=== PATIENT | male | born 1985 | race Caucasian/White ===

== ENCOUNTER 2021-03-05 05:08 | Emergency (ER) | payer OTHER ==
[~2021-03-05] VITALS: Ht 170.2 cm; Wt 81.6 kg
--- NOTE | 2021-03-05 05:30 | NUR ---
Dr. Garrett at bedside for MSE.
[2021-03-05] MEDS ORDERED: PANTOPRAZOLE SODIUM 40 MG VIAL IV ONE (05:45)
[2021-03-05] MEDS ORDERED: GLUCAGON,HUMAN RECOMBINANT 1 MG VIAL IVP ONE ×2 (05:45→06:45)
[2021-03-05] MEDS ORDERED: METOCLOPRAMIDE HCL 10 MG/2 ML VIAL IV ONE (05:45)
[2021-03-05] MEDS ORDERED: PANTOPRAZOLE SODIUM 40 MG VIAL ONE (05:53)
[2021-03-05] MEDS ORDERED: METOCLOPRAMIDE HCL 10 MG/2 ML VIAL ONE (05:53)
--- NOTE | 2021-03-05 05:53 | NUR ---
Xray at bedside.
[2021-03-05] MEDS ORDERED: GLUCAGON,HUMAN RECOMBINANT 1 MG VIAL ONE ×2 (05:54→07:01)
[2021-03-05] MEDS ORDERED: MORPHINE SULFATE 4 MG/1 ML DISP.SYRIN ONE (06:28)
[2021-03-05] MEDS ORDERED: MORPHINE SULFATE 4 MG/1 ML DISP.SYRIN IV ONE (06:30)
[2021-03-05 06:36] LABS: HEMATOCRIT 49.4 % (36.7-47.1); MEAN CORPUSCULAR HEMOGLOBIN 28.9 uug (23.8-33.4); MEAN CORPUSCULAR VOLUME 84.3 fL (73.0-96.2); PLATELET COUNT (AUTO) 242 K/uL (152-348)
[2021-03-05 07:00] LABS: BILIRUBIN,DIRECT 0.1 mg/dL (0.0-0.2); BILIRUBIN,TOTAL 0.4 mg/dL (0.2-1.0); CREATININE 1.2 mg/dL (0.6-1.3); POTASSIUM 3.6 mmol/L (3.5-5.1); TOTAL PROTEIN, SERUM 8.9 g/dL (6.4-8.2)
[2021-03-05] MEDS ORDERED: LORAZEPAM 2 MG/1 ML VIAL IV ONE (07:00)
[2021-03-05] MEDS ORDERED: LORAZEPAM 2 MG/1 ML VIAL ONE (07:04)
--- NOTE | 2021-03-05 07:04 | NUR ---
Report given to Tyree crawley.
--- NOTE | 2021-03-05 07:15 | NUR ---
Assumed care for patient at this time. Patient AO x 4, no signs of acute distres, verbalizes that he is slightly feeling better and feels okay to swallow now. Pt was given 250 cc of water for PO trial. Will monitor.
--- NOTE | 2021-03-05 08:15 | NUR ---
Patient continues to tolerate PO fluids, with no signs of nausea/vomiting or any further dysphagia. No signs of aspiration or coughing during swallowing. MD made aware, patient wants to go home.
--- NOTE | 2021-03-05 08:42 | NUR ---
Patient has been cleared for DC by ER MD. Written and verbal after care instructions given. Patient verbalizes understanding of instructions. Stressed follow up with PCP or return to ER for worsening s/s. IVF removed, catheter tip intact. 4x4 gauze applied and no signs of bleeding noted. Patient ambulated out of ED to home in stable condition and steady gait.
[2021-03-05 08:45] VITALS: BP 110/68
== END 2021-03-05 08:50 | disposition home or self-care (01) ==
LOC: ER 05:13
DX: K22.2 Esophageal obstruction (principal); F17.210 Nicotine dependence, cigarettes, uncomplicated; R94.31 Abnormal electrocardiogram [ECG] [EKG]; F41.9 Anxiety disorder, unspecified; Z20.822 Contact with and (suspected) exposure to COVID-19
CPT/HCPCS: 36415; 71045; 80048; 80076; 83690; 84484; 85025; 85730; 87426; 93005; 96374; 96375; 96376; 99285; C9113; J1610 ×2; J2060; J2270; J2765; 70030-TC; A4663

== ENCOUNTER 2021-04-18 02:37 | Emergency (ER) | payer OTHER ==
[~2021-04-18] VITALS: Ht 170.2 cm; Wt 81.6 kg
--- NOTE | 2021-04-18 02:46 | NUR ---
Dr. Haines at bedside for MSE.
[2021-04-18] MEDS ORDERED: MAG HYDROX/AL HYDROX/SIMETH 30 ML LIQUID UDC PO ONE (03:00)
[2021-04-18] MEDS ORDERED: GLUCAGON,HUMAN RECOMBINANT 1 MG VIAL IVP ONE (03:00)
[2021-04-18] MEDS ORDERED: IV NORMAL SALINE 1000 ML BAG IV ONE (03:00)
[2021-04-18] MEDS ORDERED: LIDOCAINE VISCUS 2% 15 ML UDC MM ONE (03:00)
[2021-04-18] MEDS ORDERED: FAMOTIDINE. 20 MG/2 ML VIAL IV ONE ×2 (03:00→03:09)
[2021-04-18 03:03] LABS: HEMATOCRIT 44.8 % (36.7-47.1); MEAN CORPUSCULAR HEMOGLOBIN 28.2 uug (23.8-33.4); MEAN CORPUSCULAR VOLUME 83.2 fL (73.0-96.2); PLATELET COUNT (AUTO) 325 K/uL (152-348)
[2021-04-18] MEDS ORDERED: GLUCAGON,HUMAN RECOMBINANT 1 MG VIAL ONE ×2 (03:09→03:42)
--- NOTE | 2021-04-18 03:11 | NUR ---
Pt refused xray. made aware.
[2021-04-18 03:18] LABS: BILIRUBIN,DIRECT 0.1 mg/dL (0.0-0.2); BILIRUBIN,TOTAL 0.3 mg/dL (0.2-1.0); CREATININE 1.2 mg/dL (0.6-1.3); POTASSIUM 3.5 mmol/L (3.5-5.1); TOTAL PROTEIN, SERUM 8.7 g/dL (6.4-8.2)
[2021-04-18] MEDS ORDERED: LORAZEPAM 2 MG/1 ML VIAL IV ONE (03:30)
[2021-04-18] MEDS ORDERED: FAMO-132 PO (03:52)
[2021-04-18] MEDS ORDERED: MAG HYDROX/AL HYDROX/SIMETH 30 ML LIQUID UDC ONE (03:57)
--- NOTE | 2021-04-18 03:59 | NUR ---
Patient discharged to home in stable condition. Written and verbal after care instructions given. Patient verbalizes understanding of instructions. Stressed follow up or return to ER for worsening s/s. Patient out of ER with steady gait, no acute signs of distress, VSS, all belongings taken, IV site discontinued.
[2021-04-18 04:01] VITALS: BP 125/80
== END 2021-04-18 04:01 | disposition home or self-care (01) ==
LOC: ER 02:41
DX: T18.128A Food in esophagus causing other injury, initial encounter (principal); X58.XXXA Exposure to other specified factors, initial encounter; Y92.89 Other specified places as the place of occurrence of the external cause; R03.0 Elevated blood-pressure reading, without diagnosis of hypertension; F17.210 Nicotine dependence, cigarettes, uncomplicated; R13.10 Dysphagia, unspecified
CPT/HCPCS: 36415; 80048; 80076; 83690; 85025; 96361; 96374; 96375; 99284; J1610 ×2; J3490; A4663; J7030

== ENCOUNTER 2023-02-12 00:41 | Emergency (ER) | payer OTHER ==
[~2023-02-12] VITALS: Ht 170.2 cm; Wt 86.6 kg
[~2023-02-12 00:41] MED LIST: FAMO-132 PO
[2023-02-12] MEDS ORDERED: IV NS 1000 ML 1,000 ML IV ONE (01:00)
[2023-02-12] MEDS ORDERED: GLUCAGON,HUMAN RECOMBINANT 1 MG VIAL IVP ONE (01:00)
[2023-02-12] MEDS ORDERED: GLUCAGON,HUMAN RECOMBINANT 1 MG VIAL ONE (01:02)
[2023-02-12] MEDS ORDERED: LIDOCAINE VISCUS 2% 15 ML UDC ONE (02:23)
[2023-02-12] MEDS ORDERED: MAG HYDROX/AL HYDROX/SIMETH 30 ML LIQUID UDC ONE (02:23)
[2023-02-12] MEDS ORDERED: MAG HYDROX/AL HYDROX/SIMETH 30 ML LIQUID UDC PO ONE (02:45)
[2023-02-12] MEDS ORDERED: LIDOCAINE VISCUS 2% 15 ML UDC MM ONE (02:45)
[2023-02-12 03:44] VITALS: BP 145/100; O2SAT 97
== END 2023-02-12 03:50 | disposition home or self-care (01) ==
LOC: ER 00:43
DX: T18.128A Food in esophagus causing other injury, initial encounter (principal); F17.210 Nicotine dependence, cigarettes, uncomplicated; Z79.899 Other long term (current) drug therapy; X58.XXXA Exposure to other specified factors, initial encounter; Y93.89 Activity, other specified; Y92.89 Other specified places as the place of occurrence of the external cause; Y99.8 Other external cause status
CPT/HCPCS: 99283; 96374; 96361; J7040; J1610 ×3; A4606; A4663